=== PATIENT | female | born 1985 | race Asian ===

== ENCOUNTER 2016-10-30 16:50 | Emergency (ER) | payer OTHER ==
[~2016-10-30] VITALS: Ht 152.4 cm; Wt 97.5 kg
[2016-10-30 16:53] VITALS: Ht 152.4 cm; Wt 97.5 kg
[2016-10-30] MEDS ORDERED: CEPH-443 PO (17:26)
--- NOTE | 2016-10-30 17:26 | ERD ---
ER Documentation Chief Complaint Date/Time DATE: 10/30/16 TIME: 17:14 Chief Complaint LEFT BIG TOE PAIN X 1 MONTH HPI 31-year-old female presents emergency department for left big toe pain 1 month. Stated that she was at [place] [facility] about a month ago for the same complaint, left medial great toe ingrown. Stated that the provider from [place] did a partial toenail removal. She followed up with her item processing clerk who stated that he is planning to do another surgery to her left foot ( reconstructive surgery history). LMP: Last month. A0. Denies headache, chest pain, shortness of breath, nausea, vomiting, numbness or tingling sensation, recent injury, falls, direct trauma, difficulty walking, fever, chills, antibiotic use in the last 3 months. No known drug allergies. No past medical history. Surgical history: Foot reconstruction about a year ago secondary to injury. Medication: Denies any prescription medication at this time. Social: Not working at this time. Denies smoking, use of alcohol, use of illegal drugs. ROS All systems reviewed and are negative except as per history of present illness. Medications Home Meds Active Scripts Ibuprofen* (Motrin*) 800 Mg Tab, 800 MG PO Q8 Y for PAIN AND OR ELEVATED TEMP, # 30 TAB Prov:PASILABAN,KATHRINEAR F 10/30/16 Cephalexin* (Keflex*) 500 Mg Capsule, 500 MG PO QID for 5 Days, CAP Prov:PASILABAN,KLAR F 10/30/16 Allergies Allergies: Coded Allergies: No Known Drug Allergies (Verified Allergy, Unknown, 10/30/16) PMhx/Soc History of Surgery: No Anesthesia Reaction: No Hx Neurological Disorder: No Hx Respiratory Disorders: No Hx Cardiac Disorders: No Hx Psychiatric Problems: No Hx Miscellaneous Medical Probl: No Hx Alcohol Use: No Hx Substance Use: No Hx Tobacco Use: No Physical Exam Vitals Vital Signs Date Time Temp Pulse Resp B/P Pulse Ox O2 Delivery O2 Flow Rate FiO2 10/30/16 16:53 97.8 67 18 121/56 98 Physical Exam Const: [] Head: Atraumatic Eyes: Normal Conjunctiva ENT: Normal External Ears, Nose and Mouth. Neck: Full range of motion..~ No meningismus. Resp: Clear to auscultation bilaterally Cardio: Regular rate and rhythm, no murmurs Abd: Soft, non tender, non distended. Normal bowel sounds Skin: No petechiae or rashes. Swelling with mild tenderness to the medial part of her left great toe. Circulation and sensation is intact. No signs of trauma/injury. No neurovascular deficits. Ambulatory with steady gait. Back: No midline or flank tenderness Ext: No cyanosis, or edema Neur: Awake and alert Psych: Normal Mood and Affect Procedures/MDM Examination: Please see physical examination. Patient agreed with plan of care to be placed on oral antibiotics, pain medication and just follow-up with her item processing clerk in the next 48-72 hours. Reevaluation: No neurovascular deficits. Patient ambulatory with steady gait. Prescription: Keflex. Motrin. Follow-up with primary care physician the next 24-48 hours. Follow-up with item processing clerk in the next 48-72 hours. Come back here in the emergency department for any new symptoms or any worsening of symptoms. All questions and concerns are answered. Patient verbalized understanding and agreed with the plan of care. Departure Diagnosis: Primary Impression: Nail problem Additional Impression: Ingrown left big toenail Condition: Stable Additional Instructions: Follow-up with primary care physician the next 24-48 hours. Follow-up with item processing clerk in the next 48-72 hours. Come back here in the emergency department for any new symptoms or any worsening of symptoms. All questions and concerns are answered. Patient verbalized understanding and agreed with the plan of care. ZOILA MOORE Oct 30, 2016 17:25
[2016-10-30] MEDS ORDERED: IBUP800T25 PO (17:27)
== END 2016-10-30 18:00 | disposition home or self-care (01) ==
LOC: FTE 16:50
DX: L60.0 Ingrowing nail (principal)
CPT/HCPCS: 99283